=== PATIENT | male | born 1970 | race Caucasian/White ===

== ENCOUNTER 2016-08-08 10:06 | Emergency (ER) | payer OTHER ==
[2016-08-08] MEDS ORDERED: Ketorolac INJ* 60 MG/2 ML VIAL IM ONE (10:38)
[2016-08-08] MEDS ORDERED: Cyclobenzaprine TAB* 10 MG PO ONE (10:38)
[2016-08-08] MEDS ORDERED: oxyCODONE/Acetamin 5/325 MG* TAB PO ONE (11:56)
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
[2016-08-08 13:30] VITALS: BP 131/104
--- NOTE | 2016-08-08 13:33 | RAD ---
HISTORY: Back pain, history of injury COMPARISONS: December 13, 2014 TECHNIQUE: Multiple contiguous axial CT scans were obtained of the lumbar spine without intravenous contrast, with coronal and sagittal multiplanar reformations. FINDINGS: SPINAL CANAL: Evaluation of the central canal is limited on CT technique; however, there is no obvious canalicular mass or epidural hemorrhage. ALIGNMENT: The alignment is normal. VERTEBRAL BODIES: The vertebral bodies are preserved in height. The bones are normal in attenuation. JOINTS: There is mild facet osteoarthritic change at L4-L5 and L5-S1 MUSCULATURE: Unremarkable INTERVERTEBRAL DISCS: There is diffuse loss of intervertebral disc height throughout the spine. AXIAL IMAGES: T11-T12: There is no osseous neural foraminal narrowing or central canal stenosis. T12-L1: There is no osseous neural foraminal narrowing or central canal stenosis. L1-L2: There is no osseous neural foraminal narrowing or central canal stenosis. L2-L3: There is no osseous neural foraminal narrowing or central canal stenosis. L3-L4: There is mild broad-based disc bulge. There is no osseous neural foraminal area or central canal stenosis. L4-L5: There is broad-based disc bulge. There is no osseous neural foraminal area or central canal stenosis. L5-S1: There is a mild broad-based disc bulge. There is no osseous neural foraminal narrowing or central canal stenosis. SOFT TISSUES: The visualized soft tissues of the abdomen are unremarkable. OTHER: None IMPRESSION: MILD DEGENERATIVE CHANGES, WITHOUT ACUTE OSSEOUS INJURY TO THE LUMBAR SPINE
== END 2016-08-08 14:45 | disposition home or self-care (01) ==
LOC: ED 10:06
DX: M54.5 Low back pain (principal); M54.9 Dorsalgia, unspecified
CPT/HCPCS: 72131; 96372; 99282; A9270-GY; J1885

== ENCOUNTER 2016-11-13 18:12 | Emergency (ER) | payer OTHER ==
[2016-11-13 18:18] VITALS: BP 122/93
[2016-11-13] MEDS ORDERED: Ondansetron ODT TAB* 4 MG PO ONE (18:20)
== END 2016-11-13 20:35 | disposition left against medical advice (07) ==
LOC: ED 18:12
DX: R20.0 Anesthesia of skin (principal); M25.519 Pain in unspecified shoulder; Z53.21 Procedure and treatment not carried out due to patient leaving prior to being seen by health care provider
CPT/HCPCS: 93005

== ENCOUNTER 2016-11-14 19:24 | Emergency (ER) | payer OTHER ==
[2016-11-14 19:30] VITALS: BP 126/92
[2016-11-14] MEDS ORDERED: Ketorolac INJ* 60 MG/2 ML VIAL IM ONE (19:44)
--- NOTE | 2016-11-14 20:29 | RAD ---
INDICATION: Neck pain COMPARISON: CT cervical spine December 13, 2014 TECHNIQUE: Routine five-view imaging was performed FINDINGS: Bones: There are no acute bony findings. There are minor arthritic findings consisting of vertebral spurring and minor disc space narrowing at C5-C6 and C6-C7. There are rudimentary cervical ribs at C7 bilaterally. Craniocervical junction: The odontoid and atlantodental interval are normal. Alignment: Normal Disc spaces: The remaining disc spaces are well-maintained Soft tissues: The prevertebral soft tissues are normal. IMPRESSION: MINOR MIDCERVICAL OSTEOARTHRITIC CHANGE. RUDIMENTARY CERVICAL RIBS AT C7.
--- NOTE | 2016-11-14 20:30 | RAD ---
INDICATION: Left shoulder pain COMPARISON: Cervical spine same date TECHNIQUE: Routine frontal, Y and axial views were obtained. FINDINGS: There are no significant radiographic abnormalities about the left shoulder. The joint spaces are preserved. Incidental note is made of a small rudimentary cervical rib at C7. IMPRESSION: C7 CERVICAL RIB. NO SIGNIFICANT RADIOGRAPHIC ABNORMALITIES ABOUT THE SHOULDER
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
== END 2016-11-14 20:55 | disposition home or self-care (01) ==
LOC: UCEAST 19:24
DX: M19.012 Primary osteoarthritis, left shoulder (principal); M47.812 Spondylosis without myelopathy or radiculopathy, cervical region; M54.12 Radiculopathy, cervical region; Z88.0 Allergy status to penicillin
CPT/HCPCS: 72050; 99213; G0463; J1885

== ENCOUNTER 2017-07-24 17:37 | Emergency (ER) | payer SELFPAY ==
[2017-07-24 17:41] VITALS: BP 141/90
== END 2017-07-24 19:07 | disposition left against medical advice (07) ==
LOC: ED 17:37
DX: M54.9 Dorsalgia, unspecified (principal); Z53.21 Procedure and treatment not carried out due to patient leaving prior to being seen by health care provider

== ENCOUNTER 2017-10-23 09:36 | Emergency (ER) | payer SELFPAY ==
[2017-10-23 10:02] VITALS: BP 132/85
[2017-10-23] MEDS ORDERED: HYDROcodone/ACETAMIN 5-325 MG* 1 TAB PO ONE (10:10)
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
[2017-10-23] MEDS ORDERED: Silver Sulfadiazine 1%* 20 GM TOPICAL ONE (10:59)
== END 2017-10-23 11:28 | disposition home or self-care (01) ==
LOC: UCEAST 09:36
DX: T22.111A Burn of first degree of right forearm, initial encounter (principal); T31.0 Burns involving less than 10% of body surface; X13.1XXA Other contact with steam and other hot vapors, initial encounter; Y92.9 Unspecified place or not applicable; Z88.0 Allergy status to penicillin
CPT/HCPCS: 99213; A9270-GY; G0463

== ENCOUNTER 2018-01-24 08:11 | Emergency (ER) | payer SELFPAY ==
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
--- NOTE | 2018-01-24 09:07 | RAD ---
INDICATION: Right hand injury. TECHNIQUE: 2 views of the right hand were obtained. FINDINGS: The bones are in normal alignment. No fracture is seen. Joint spaces appear maintained. IMPRESSION: NO EVIDENCE FOR FRACTURE.
[2018-01-24 10:17] VITALS: BP 134/78
--- NOTE | 2018-01-24 14:34 | ED ---
Upper Extremity Pain - HPI Summary HPI Summary: Patient is a 47-year-old male presenting to the ED with right hand pain. He states he had a crush injury to the distal tip of the fourth finger as well as the distal tip of the index finger. There appears to be a superficial paronychia to the distal tip of the fourth finger. He endorses pain radiating up just past the wrist. Crush injury occurred to only the fingertips. - History of Current Complaint Chief Complaint: EDExtremityUpper Stated Complaint: RT HAND INJURY Time Seen by Provider: 01/24/18 08:20 Hx Obtained From: Patient Mechanism Of Injury: Direct Blow Onset/Duration: Started Hours Ago Timing: Constant Severity Initially: Moderate Severity Currently: Moderate Pain Location: Wrist, Hand Character: Aching Aggravating Factor(s): Nothing Alleviating Factor(s): Ice Associated Signs & Symptoms: Positive: Redness. Negative: Swelling, Bruising, Numbness/Tingling, Chest Pain, Neck Pain, Nausea Related History: Dominant Hand Right - Risk Factors Non-Orthopedic Risk Factor: Negative DVT Risk Factors: Negative Septic Arthritis Risk Factor: Negative Compartment Syndrome Risk Factors: Pain - Allergies/Home Medications Allergies/Adverse Reactions: Allergies Allergy/AdvReac Type Severity Reaction Status Date / Time coconut Allergy Eyes Verified 01/24/18 08:18 Itchy/Swollen/Red/Watery Penicillins Allergy Anaphylatic Verified 01/24/18 08:18 Shock PMH/Surg Hx/FS Hx/Imm Hx Previously Healthy: Yes Endocrine/Hematology History: Denies: Hx Diabetes Cardiovascular History: Reports: Hx Hypertension - on medication Denies: Hx Congestive Heart Failure History: Denies: Hx Renal Disease Musculoskeletal History: Reports: Hx Back Problems Sensory History: Reports: Hx Contacts or Glasses Opthamlomology History: Reports: Hx Contacts or Glasses Psychiatric History: Reports: Hx Substance Abuse - cocaine use "years ago" - Surgical History Surgery Procedure, Year, and Place: LEFT ARM - INFECTED LYMPH NODES ~ 2001 - Immunization History Hx Pertussis Vaccination: No Immunizations Up to Date: Unable to Obtain/Confirm Infectious Disease History: No Infectious Disease History: Denies: Traveled Outside the [place] in Last 30 Days - Family History Known Family History: Positive: None - Social History Occupation: Employed Full-time Lives: With Family Alcohol Use: None Alcohol Amount: Quit altogether in 2011, per patient Hx Substance Use: No Substance Use Type: Reports: None Hx Tobacco Use: No Smoking Status (MU): Never Smoked Tobacco Review of Systems Constitutional: Negative Negative: Fever, Skin Diaphoresis Negative: Palpitations, Chest Pain Negative: Shortness Of Breath Genitourinary: Negative Positive: no symptoms reported, see HPI Negative: Arthralgia, Myalgia Positive: Other - paronychia to the distal tip of the fourth finger Neurological: Negative Psychological: Normal All Other Systems Reviewed And Are Negative: Yes Physical Exam Triage Information Reviewed: Yes Vital Signs On Initial Exam: Initial Vitals Temp Pulse Resp BP Pulse Ox 98.3 F 80 18 142/96 100 01/24/18 08:14 01/24/18 08:14 01/24/18 08:14 01/24/18 08:14 01/24/18 08:14 Vital Signs Reviewed: Yes Appearance: Positive: Well-Appearing, Well-Nourished Skin: Positive: Warm, Skin Color Reflects Adequate Perfusion, Other - paronychia to the distal tip of the fourth finger Head/Face: Positive: Normal Head/Face Inspection Eyes: Positive: EOMI, EPI, Conjunctiva Clear Neck: Positive: Supple, No Lymphadenopathy Respiratory/Lung Sounds: Positive: Clear to Auscultation, Breath Sounds Present Cardiovascular: Positive: RRR, Pulses are Symmetrical in both Upper and Lower Extremities Musculoskeletal: Positive: Normal, Strength/ROM Intact Neurological: Positive: Sensory/Motor Intact, Alert, Oriented to Person Place, Time, Speech Normal Psychiatric: Positive: Normal, Affect/Mood Appropriate AVPU Assessment: Alert Diagnostics - Vital Signs Vital Signs Temp Pulse Resp BP Pulse Ox 01/24/18 10:16 97.8 F 80 17 134/78 99 01/24/18 08:14 98.3 F 80 18 142/96 100 - Laboratory Lab Statement: Any lab studies that have been ordered have been reviewed, and results considered in the medical decision making process. Course/Dx - Course Course Of Treatment: During the course of treatment, the patient is evaluated for right hand crush injury. There is a crush injury to the distal tip of the index and ring finger of the right hand. There appears to be small paronychia to the distal tip of the ring finger which is very superficial and unable to be drained. Patient is prescribed clindamycin 5 days. Flexion and extension of the wrist with minimal amount of pain. Thumb opposition intact. Pulses +2 intact bilaterally. Good cap refill. No ecchymosis or erythema to the hand or wrist. Small amount of erythema around the distal tip of the fourth finger surrounding a small white patch appearing to be a paronychia. Hand x-ray obtained which shows no fracture. He is okay for discharge at this time. - Diagnoses Differential Diagnosis/HQI/PQRI: Positive: Contusion, Fracture (Closed), Hematoma, Strain, Sprain, Other - paronychia Provider Diagnoses: Paronychia Discharge - Sign-Out/Discharge Documenting (check all that apply): Patient Departure - Discharge Plan Condition: Stable Disposition: HOME Prescriptions: Clindamycin Cap(NF) [Clindamycin Cap 300 mg Cap(NF)] 300 mg PO TID #15 cap Referrals: Merlin Peace MD [Primary Care Provider] - Additional Instructions: Soak in warm water and epsom salt Clindamycin three times daily x 5 days - Billing Disposition and Condition Condition: STABLE Disposition: Home
== END 2018-01-24 10:16 | disposition home or self-care (01) ==
LOC: ED 08:11
DX: L03.011 Cellulitis of right finger (principal); M79.641 Pain in right hand; I10 Essential (primary) hypertension; Z88.0 Allergy status to penicillin
CPT/HCPCS: 99282

== ENCOUNTER 2018-02-10 11:25 | Emergency (ER) | payer SELFPAY ==
[2018-02-10 11:35] VITALS: BP 125/92
[2018-02-10] MEDS ORDERED: Sulfamethox/Trimethoprim DS 800/160* TAB PO ONE (11:56)
--- NOTE | 2018-02-10 12:05 | UC ---
Skin Complaint HPI - HPI Summary HPI Summary: The patient is a 47-year-old male that sustained some battery acid cuevas to both his left forearm and right ankle. This occurred about 2 weeks ago. All the cuevas were approximately quarter sized. The cuevas did well initially. The patient then spent 1 week in nursing home. While he was in nursing home the burn started appearing infected. He denies any history of MRSA. He has no fever or chills. The cuevas that were at one point initially only mildly painful have had a increased in pain for the past few days. - History of Current Complaint Chief Complaint: UCBurn Time Seen by Provider: 02/10/18 11:40 Stated Complaint: ARM COMPLAINT Hx Obtained From: Patient Onset/Duration: Sudden Onset, Lasting Weeks Timing: Constant Onset Severity: Mild Current Severity: Moderate Pain Intensity: 7 Pain Scale Used: 0-10 Numeric Location: Discrete Character: Pain, Redness Aggravating Factor(s): Touch Alleviating Factor(s): Nothing Associated Signs & Symptoms: Positive: Tenderness Related History: Trauma - Allergy/Home Medications Allergies/Adverse Reactions: Allergies Allergy/AdvReac Type Severity Reaction Status Date / Time coconut Allergy Eyes Verified 02/10/18 11:35 Itchy/Swollen/Red/Watery Penicillins Allergy Anaphylatic Verified 02/10/18 11:35 Shock Review of Systems Constitutional: Negative Skin: Negative Eyes: Negative ENT: Negative Respiratory: Negative Cardiovascular: Negative Gastrointestinal: Negative Genitourinary: Negative Motor: Negative Neurovascular: Negative Musculoskeletal: Negative Neurological: Negative Psychological: Negative Is Patient Immunocompromised?: No All Other Systems Reviewed And Are Negative: Yes PMH/Surg Hx/FS Hx/Imm Hx Previously Healthy: Yes - Surgical History Surgical History: Yes Surgery Procedure, Year, and Place: LEFT ARM - INFECTED LYMPH NODES ~ 2001 - Family History Known Family History: Positive: None - Social History Alcohol Use: Occasionally Alcohol Amount: Quit altogether in 2012, per patient Substance Use Type: None Smoking Status (MU): Never Smoked Tobacco - Immunization History Most Recent Influenza Vaccination: 2012 Most Recent Tetanus Shot: up to date Most Recent Pneumonia Vaccination: none Physical Exam Triage Information Reviewed: Yes Appearance: Well-Appearing, No Pain Distress, Well-Nourished Vital Signs: Initial Vital Signs Temp 97.5 F 02/10/18 11:29 Pulse 92 02/10/18 11:29 Resp 20 02/10/18 11:29 BP 125/92 02/10/18 11:29 Pulse Ox 97 02/10/18 11:29 Eye Exam: Normal Eyes: Positive: Conjunctiva Clear ENT: Positive: Hearing grossly normal. Negative: Pharyngeal erythema, Nasal congestion, Hoarse voice Neck: Positive: Supple, Nontender, No Lymphadenopathy Respiratory: Positive: Lungs clear, Normal breath sounds, No respiratory distress, No accessory muscle use Cardiovascular: Positive: RRR, No Murmur Musculoskeletal: Positive: ROM Intact, No Edema Neurological: Positive: Alert Skin Exam: Other - see image Course/Dx - Diagnoses Provider Diagnoses: infected burn with impetiginous appearance. suspect MRSA Discharge - Sign-Out/Discharge Documenting (check all that apply): Patient Departure All imaging exams completed and their final reports reviewed: No Studies - Discharge Plan Condition: Stable Disposition: HOME Prescriptions: Mupirocin 2% OINT* [Bactroban 2 % Oint*] 1 applic TOPICAL TID #1 tube Sulfamethox/Trimethoprim DS* [Bactrim DS 800/160 TAB*] 1 tab PO BID #14 tab Patient Education Materials: MRSA (Methicillin-Resistant Staphylococcus Aureus ) (ED), Impetigo (ED) Referrals: Merlin Peace MD [Primary Care Provider] - 1 Week Additional Instructions: gently clean 2-3 x daily apply bactroban recheck for new or worsening symptoms a culture is pending If culture + for MRSA read handout - Billing Disposition and Condition Condition: STABLE Disposition: Home Images Front/Back of Body, Lg ([place]): 1 - healing burn about 3 x 3 cm, no erthyema 2 - burn will ulceration- culture obtains 3 - indurated burn/not flutuant
--- NOTE | 2018-02-11 12:19 | UC ---
- Progress Note Progress Note: wound + Strep Pyogenes Pt on Bactrim call pt - change to Clinda discontinue Bactrim culture final pending ljj 02/11/2018 12:18 Discharge - Sign-Out/Discharge Documenting (check all that apply): Post-Discharge Follow Up All imaging exams completed and their final reports reviewed: No Studies - Discharge Plan Condition: Stable Disposition: HOME Prescriptions: Mupirocin 2% OINT* [Bactroban 2 % Oint*] 1 applic TOPICAL TID #1 tube Sulfamethox/Trimethoprim DS* [Bactrim DS 800/160 TAB*] 1 tab PO BID #14 tab Patient Education Materials: MRSA (Methicillin-Resistant Staphylococcus Aureus ) (ED), Impetigo (ED) Referrals: Merlin Peace MD [Primary Care Provider] - 1 Week Additional Instructions: gently clean 2-3 x daily apply bactroban recheck for new or worsening symptoms a culture is pending If culture + for MRSA read handout - Billing Disposition and Condition Condition: STABLE Disposition: Home
--- NOTE | 2018-02-12 15:47 | UC ---
- Progress Note Progress Note: Culture final with Strep Pyogenes 1) He was initially placed on BACTRIM and then switched to CLINDAMYCIN....his culture shows resistant to clindamycin - therefore STOP clinda and start levaquin (which is sens) 500mg QD for 7days Discharge - Sign-Out/Discharge Documenting (check all that apply): Post-Discharge Follow Up All imaging exams completed and their final reports reviewed: No Studies - Discharge Plan Condition: Stable Disposition: HOME Prescriptions: Clindamycin Cap(NF) [Clindamycin Cap 300 mg Cap(NF)] 300 mg PO TID #21 cap Levofloxacin TAB* [Levaquin TAB*] 500 mg PO DAILY #7 tab Mupirocin 2% OINT* [Bactroban 2 % Oint*] 1 applic TOPICAL TID #1 tube Patient Education Materials: MRSA (Methicillin-Resistant Staphylococcus Aureus ) (ED), Impetigo (ED) Referrals: Merlin Peace MD [Primary Care Provider] - 1 Week Additional Instructions: gently clean 2-3 x daily apply bactroban recheck for new or worsening symptoms a culture is pending If culture + for MRSA read handout - Billing Disposition and Condition Condition: STABLE Disposition: Home
== END 2018-02-10 12:10 | disposition home or self-care (01) ==
LOC: UCEAST 11:25
CPT/HCPCS: 87070; 87205; 87640; 87641; 99212; A9270-GY; G0463

== ENCOUNTER 2019-06-16 02:17 | Emergency (ER) | payer SELFPAY ==
[2019-06-16] MEDS ORDERED: levETIRAcetam 1000MG IVPREMIX* 1,000 MG/100 ML BAG IVPB ONE (02:22)
--- NOTE | 2019-06-16 02:25 | ED ---
Neurological HPI - HPI Summary HPI Summary: Pt is a 49 y/o M presenting to the ED brought in by EMS for a seizure. Per EMS, pts son received a phone call from the pt around 0145 where the pt stated he needed help. Upon sons arrival to the scene, he was reportedly shaking on the bathroom floor, like a fish out of water. Pt also reportedly does not remember going to the bathroom or making the phone call. On EMS arrival, pt was mostly unresponsive until they began to move him and talk with him. He hit his head on the bathroom sink, hard enough to break his glasses and knock over the sink, and he is bleeding from his L eyebrow as well as behind his ear. He is not on medication for seizures, though he has had one in 2011 and another about 2 weeks ago. He reports neck pain. - History of Current Complaint Chief Complaint: EDSeizure Stated Complaint: SEIZURE PER EMS Time Seen by Provider: 06/16/19 02:18 Hx Obtained From: Patient, EMS Onset/Duration: Sudden Onset, Started minutes ago, Resolved Timing: Constant Onset Severity: Moderate Current Severity: Mild Seizure Severity: Moderate Neurological Deficit Location: Generalized Seizure Character: Total-Clonic Aggravating: Unknown Alleviating: Spontanious Resolution Associated Signs and Symptoms: Positive: Headache, Seizure, Neck Pain/Stiffness TPA Considered: No Related Hx: Seizure - Allergy/Home Medications Allergies/Adverse Reactions: Allergies Allergy/AdvReac Type Severity Reaction Status Date / Time coconut Allergy Eyes Verified 06/16/19 17:16 Itchy/Swollen/Red/Watery Penicillins Allergy Anaphylatic Verified 06/16/19 17:16 Shock PMH/Surg Hx/FS Hx/Imm Hx Previously Healthy: Yes Endocrine/Hematology History: Denies: Hx Diabetes Cardiovascular History: Reports: Hx Hypertension Denies: Hx Congestive Heart Failure History: Denies: Hx Renal Disease Musculoskeletal History: Reports: Hx Back Problems Sensory History: Reports: Hx Contacts or Glasses Opthamlomology History: Reports: Hx Contacts or Glasses Psychiatric History: Reports: Hx Substance Abuse - cocaine use "years ago" - Surgical History Surgery Procedure, Year, and Place: LEFT ARM - INFECTED LYMPH NODES ~ 2001 - Family History Known Family History: Negative: Diabetes - Social History Alcohol Use: Occasionally Alcohol Amount: Quit altogether in 2011, per patient Hx Substance Use: No Substance Use Type: Reports: None Hx Tobacco Use: No Smoking Status (MU): Never Smoked Tobacco Review of Systems Positive: Myalgia - neck Positive: Other - lac Neurological: Other - seizure All Other Systems Reviewed And Are Negative: Yes Physical Exam - Summary Physical Exam Summary: Appearance: Well-appearing, Well-nourished, lying in bed comfortably Skin: Warm, dry, no obvious rash. Superficial laceration of the L eyelid, abrasion of the temporal scalp near the R ear, edema and abrasion of the bridge of the nose Eyes: sclera anicteric, no conjunctival pallor. superficial laceration of the L eyelid ENT: mucous membranes moist, pharynx appears normal Neck: Supple, nontender Respiratory: Clear to auscultation, no signs of respiratory distress Cardiovascular: Normal S1, S2. No murmurs. Normal distal pulses in tibial and radial bilaterally. Abdomen: Soft, nontender, normal active bowel sounds present Musculoskeletal: Normal, Strength/ROM Intact, Motor function in all 4 extremities is normal and symmetric. There is no rigidity or tremor noted. Neurological: A&Ox3, awake and alert, somewhat somnolent but easily rousable mentation is normal, speech is fluent and appropriate. Cranial nerves are grossly intact. Gaze is conjugate and without nystagmus. Peripheral vision is intact to confrontation. There are no gross sensory abnormalities to light touch. There is no truncal or fine motor ataxia. Able to walk, somewhat gingerly. Psychiatric: affect is normal, does not appear anxious or depressed Triage Information Reviewed: Yes Vital Signs Reviewed: Yes - [place] Coma Scale Best Eye Response: 4 - Spontaneous Best Motor Response: 6 - Obeys Commands Best Verbal Response: 5 - Oriented Coma Scale Total: 15 Procedures - Sedation Patient Received Moderate/Deep Sedation with Procedure: No Diagnostics - Laboratory Result Diagrams: 06/16/19 02:29 06/16/19 02:26 Lab Statement: Any lab studies that have been ordered have been reviewed, and results considered in the medical decision making process. - CT Brain CT CT Interpretation Completed By: Radiologist Summary of CT Findings: 1. There has been no change intracranially since 2014. 2. Slight left periorbital soft tissue swelling. 3. Minimal right maxillary sinus disease. ED physician has reviewed this report. CT C-spine CT Interpretation Completed By: Radiologist Summary of CT Findings: 1. Multilevel degenerative changes with no significant spinal or foraminal stenosis. 2. No acute fracture or subluxation. ED physician has reviewed this report. Course/Dx - Course Course Of Treatment: Pt is a 49 y/o M presenting to the ED brought in by EMS for a seizure reportedly witnessed by pt's son. Pt hit his head on his bathroom sink, sustained a laceration, and reports neck pain. He is not on seizure medication. Brain CT shows: 1. There has been no change intracranially since . 2. Slight left periorbital soft tissue swelling. 3. Minimal right maxillary sinus disease. CT C-spine shows: 1. Multilevel degenerative changes with no significant spinal or foraminal stenosis. 2. No acute fracture or subluxation. On exam, pt has a superficial laceration of the L eyelid, abrasion of the temporal scalp near the R ear, edema and abrasion of the bridge of the nose. He is awake and alert, somewhat somnolent but easily rousable to voice, and is able to walk, but somewhat gingerly. Neurological exam otherwise nml. Pt will be d/c'ed with dx of seizures and head injury. He is stable and agreeable with this plan. - Diagnoses Provider Diagnoses: Seizure, Head injury Discharge ED - Sign-Out/Discharge Documenting (check all that apply): Patient Departure - Discharge Plan Condition: Good Disposition: HOME Prescriptions: levETIRAcetam TAB* [Keppra TAB*] 500 mg PO BID #60 tab Patient Education Materials: Recurrent Seizures in Adults (ED) Forms: *Work Release Referrals: Merlin Peace MD [Primary Care Provider] - Additional Instructions: You will need to see your primary doctor by the end of the week to see how you are healing as well as to arrange further testing. He will want you to see a neurologist, and will probably order an EEG test. In the meantime I have started you on an anti-seizure medication and sent in a prescription for your pharmacy. The dose on that will need to be gradually increased as well over the next few weeks. [place] law is clear that if you suffer from seizures you cannot drive until you are cleared by a physician, so for now you should not drive a vehicle or operate any other equipment that could present a danger if you have another seizure. - Billing Disposition and Condition Condition: GOOD Disposition: Home - Attestation Statements Document Initiated by Shellie: Yes Documenting Scribe: Zohreh Menchaca Provider For Whom Aydeibe is Documenting (Include Credential): Luigi Arzoal MD. Scribe Attestation: Zohreh Martinez, shellied for Luigi Arzola MD. on 06/17/19 at 0536. Scribe Documentation Reviewed: Yes Provider Attestation: The documentation as recorded by the aydeibe, Zohreh Menchaca accurately reflects the service I personally performed and the decisions made by me, Luigi Arzola MD. Status of Scribe Document: Viewed
[2019-06-16 02:36] LABS: ABS Basophils 0.1 10^3/ul (0-0.2); ABS Lymphocytes 1.7 10^3/ul (1.0-4.8); ABS Monocytes 0.4 10^3/ul (0-0.8); ABS Neutrophils 4.3 10^3/ul (1.5-7.7); Hematocrit 42 % (42-52); Hemoglobin 14.8 g/dL (14.0-18.0); Lymphocyte % 26.9 %; Mean Corpuscular HGB Conc 36 g/dL (31-36); Mean Corpuscular Hemoglobin 31 pg (27-31); Mean Corpuscular Volume 86 fL (80-94); Mean Platelet Volume 8.8 fL (7.4-10.4); Platelet Count 258 10^3/uL (150-450); Red Blood Count 4.85 10^6 /uL (4.18-5.48); Red Cell Distribution Width 13 % (10-15); White Blood Count 6.5 10^3/uL (3.5-10.8)
[2019-06-16 02:42] LABS: INR 0.96 (0.82-1.09)
[2019-06-16 02:53] LABS: Albumin 4.3 g/dL (3.2-5.2); Albumin/Globulin Ratio 1.7 (1-3); BUN/Creatinine Ratio 17.6 (8-20); Calcium 8.9 mg/dL (8.6-10.3); EGFR African American 93.2 (>60); Globulin 2.5 g/dL (2-4); Magnesium 2.2 mg/dL (1.9-2.7); Potassium 3.2 mmol/L (3.5-5.0); Total Bilirubin 0.4 mg/dL (0.2-1.0); Total Protein 6.8 g/dL (6.4-8.9)
[2019-06-16 04:18] VITALS: BP 124/94
== END 2019-06-16 04:16 | disposition home or self-care (01) ==
LOC: ED 02:17
DX: S09.90XA Unspecified injury of head, initial encounter (principal); R56.9 Unspecified convulsions; R51 Headache; M54.2 Cervicalgia; I10 Essential (primary) hypertension; W19.XXXA Unspecified fall, initial encounter; Y92.9 Unspecified place or not applicable; Z79.899 Other long term (current) drug therapy
CPT/HCPCS: 36415; 70450; 72125; 80053; 83605; 83735; 85025; 85610; 93005; 96365; 99283; J1953

== ENCOUNTER 2019-06-16 17:12 | Emergency (ER) | payer SELFPAY ==
--- NOTE | 2019-06-16 19:49 | ED ---
Adult Trauma - HPI Summary HPI Summary: Patient complains of persistent left temporal pain status post fall during seizure last night. Patient was seen here last night for same with negative cervical CT scan and negative brain CT. Patient has laceration over left eyebrow and along left side nose which were reapproximated with adhesive yesterday night. Denies any new trauma, symptoms or injury, including vision change, imbalance, neurological deficits, N/V. No anti-coag. Patient has been taking ibuprofen and Tylenol with no relief of pain. Patient seeking pain control. Patient received Rx last night for seizure medication which she states he will picker packer at the pharmacy tomorrow. - History of Current Complaint Chief Complaint: EDFacialInjury Stated Complaint: FACIAL INJURIES/PAIN PER PT Time Seen by Provider: 06/16/19 19:48 Hx Obtained From: Patient Mechanism of Injury: Blunt Trauma, Fall Ambulatory at the Scene: No Loss of Consciousness: unsure Onset/Duration: Started Hours Ago Onset of Pain: Immediate Current Severity: Severe Pain Intensity: 8 Pain Scale Used: 0-10 Numeric Location: Head Character: Dull, Aching Aggravating Factor(s): Movement, Palpation Alleviating Factor(s): Nothing Associated Signs & Symptoms: Positive: Loss of Consciousness - Allergy/Home Medications Allergies/Adverse Reactions: Allergies Allergy/AdvReac Type Severity Reaction Status Date / Time coconut Allergy Eyes Verified 06/16/19 17:16 Itchy/Swollen/Red/Watery Penicillins Allergy Anaphylatic Verified 06/16/19 17:16 Shock PMH/Surg Hx/FS Hx/Imm Hx Endocrine/Hematology History: Denies: Hx Diabetes Cardiovascular History: Reports: Hx Hypertension Denies: Hx Congestive Heart Failure History: Denies: Hx Renal Disease Musculoskeletal History: Reports: Hx Back Problems Sensory History: Reports: Hx Contacts or Glasses Opthamlomology History: Reports: Hx Contacts or Glasses EENT History: Denies: Hx Deafness Neurological History: Denies: Hx Dementia Psychiatric History: Reports: Hx Substance Abuse - cocaine use "years ago" - Surgical History Surgery Procedure, Year, and Place: LEFT ARM - INFECTED LYMPH NODES ~ 2001 Infectious Disease History: No Infectious Disease History: Denies: Traveled Outside the [place] in Last 30 Days - Family History Known Family History: Negative: Diabetes - Social History Alcohol Use: Occasionally Alcohol Amount: Quit altogether in 2011, per patient Hx Substance Use: No Substance Use Type: Reports: None Hx Tobacco Use: No Smoking Status (MU): Never Smoked Tobacco Review of Systems Constitutional: Negative Eyes: Negative ENT: Negative Cardiovascular: Negative Respiratory: Negative Gastrointestinal: Negative Genitourinary: Negative Musculoskeletal: Other Skin: Other Neurological: Negative Psychological: Normal All Other Systems Reviewed And Are Negative: Yes Physical Exam - Summary Physical Exam Summary: Neuro exam normal. Lacerations from last night. Her clean and dry and intact after reapproximation with skin adhesive. No trauma noted to mouth, face, head. Full range of motion of neck and jaw. No pain with palpation of cervical spine or paraspinal muscles. Triage Information Reviewed: Yes Vital Signs On Initial Exam: Initial Vitals Temp Pulse Resp BP Pulse Ox 98.7 F 75 19 131/89 98 06/16/19 17:13 06/16/19 17:13 06/16/19 17:13 06/16/19 17:13 06/16/19 17:13 Vital Signs Reviewed: Yes Appearance: Positive: Well-Appearing Skin: Positive: Warm Head/Face: Positive: Normal Head/Face Inspection Eyes: Positive: Normal ENT: Positive: Normal ENT inspection Dental: Negative: Dental Fracture @, Bleeding Neck: Positive: Supple Respiratory/Lung Sounds: Positive: Clear to Auscultation Cardiovascular: Positive: Normal Abdomen Description: Positive: Nontender Musculoskeletal: Positive: Normal Neurological: Positive: Normal Psychiatric: Positive: Normal AVPU Assessment: Alert - Macario Coma Scale Best Eye Response: 4 - Spontaneous Best Motor Response: 6 - Obeys Commands Best Verbal Response: 5 - Oriented Coma Scale Total: 15 Procedures - Sedation Patient Received Moderate/Deep Sedation with Procedure: No Diagnostics - Vital Signs Vital Signs Temp Pulse Resp BP Pulse Ox 06/16/19 18:52 97.5 F 77 19 117/95 98 06/16/19 17:13 98.7 F 75 19 131/89 98 - Laboratory Lab Statement: Any lab studies that have been ordered have been reviewed, and results considered in the medical decision making process. Adult Trauma Course/Dx - Course Course Of Treatment: Patient complains of persistent left temporal pain status post fall during seizure last night. Patient was seen here last night for same with negative cervical CT scan and negative brain CT. Patient has laceration over left eyebrow and along left side nose which were reapproximated with adhesive yesterday night. Denies any new trauma, symptoms or injury, including vision change, imbalance, neurological deficits, N/V. No anti-coag. Patient has been taking ibuprofen and Tylenol with no relief of pain. Patient seeking pain control. Patient received Rx last night for seizure medication which she states he will picker packer at the pharmacy tomorrow. Vital signs within normal limits. CT of brain and C-spine negative last night. CT maxillofacial negative today. Rx for oxycodone. - Diagnoses Provider Diagnoses: Facial injury, Head injury Discharge ED - Sign-Out/Discharge Documenting (check all that apply): Patient Departure - Discharge Plan Condition: Stable Disposition: HOME Patient Education Materials: Head Injury (ED), Facial Laceration (ED) Referrals: Merlin Peace MD [Primary Care Provider] - Additional Instructions: Alternate ibuprofen 600 mg with Tylenol 650 mg every 3 hours for face pain and headache. You may use the oxycodone as directed for breakthrough pain. Keep the wound clean and dry. Return to the ED for any new or worsening symptoms. - Billing Disposition and Condition Condition: STABLE Disposition: Home
[2019-06-16] MEDS ORDERED: oxyCODONE TAB* 5 MG TAB PO ONE (20:19)
[2019-06-16 21:37] VITALS: BP 143/97
== END 2019-06-16 21:35 | disposition home or self-care (01) ==
LOC: ED 17:12
DX: S09.93XA Unspecified injury of face, initial encounter (principal); S09.90XA Unspecified injury of head, initial encounter; W19.XXXA Unspecified fall, initial encounter; Y92.9 Unspecified place or not applicable; I10 Essential (primary) hypertension; Z88.0 Allergy status to penicillin
CPT/HCPCS: 70486; 99282; A9270-GY